=== PATIENT | female | born 1980 | race Caucasian/White ===

== ENCOUNTER 2016-10-14 22:21 | Emergency (ER) | payer OTHER ==
[2016-10-14 22:28] VITALS: BP 151/76; PULSE 87; RESP 18; TEMP 98.2; O2SAT 95
[2016-10-14] MEDS ORDERED: HYDROCODONE/APAP 5/325 TAB PO ONE (22:28)
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
[2016-10-14] MEDS ORDERED: KETOROLAC 30 MG/1 ML SDV IM ONE (22:49)
[2016-10-14] MEDS ORDERED: HYDROCOD/APAP 5/325 PREPACK#6 BTL TAKEHOME ONE (23:07)
== END 2016-10-14 23:25 | disposition home or self-care (01) ==
LOC: CED 22:21
DX: S50.312A Abrasion of left elbow, initial encounter (principal); J45.909 Unspecified asthma, uncomplicated; Z91.040 Latex allergy status; V18.0XXA Pedal cycle driver injured in noncollision transport accident in nontraffic accident, initial encounter; Y92.410 Unspecified street and highway as the place of occurrence of the external cause; Y99.8 Other external cause status; Y93.55 Activity, bike riding
CPT/HCPCS: 73000-PO; 73080-PO; A4565; J1885

== ENCOUNTER → 2018-08-03 | Outpatient (CLI) | payer OTHER | LOC: EMCIMAGING 09:24 | PROVIDERS: ATTEND Physician Assistant Medical | DX: Z13.820 Encounter for screening for osteoporosis (principal); M85.89 Other specified disorders of bone density and structure, multiple sites | CPT/HCPCS: 77080-PN ==